=== PATIENT | female | born 1980 | race American Indian/Alaskan Native ===

== ENCOUNTER 2024-04-09 03:25 | Emergency (ER) | payer OTHER, SELFPAY ==
[2024-04-09 03:26] VITALS: BMI 32.4
[2024-04-09 03:35] VITALS: BP 157/102; BP 170/110; PULSE 85; RESP 16; TEMP 36.5; O2SAT 99
[2024-04-09 04:29] VITALS: BP 133/85; PULSE 76; RESP 16; TEMP 36.7; O2SAT 100
[2024-04-09] MEDS: KETOROLAC INJ 60 MG/2 ML VIAL 30 MG IM (04:38)
--- NOTE | 2024-04-09 04:38 | PD.EDEYE ---
ED Eye Problem RME/HPI General Chief complaint: Eye Problems Stated complaint: RIGHT EYE SWELLING Time Seen by Provider: 04/09/24 04:19 Source: patient Arrival date/time: 04/09/24 03:25 Mode of arrival: ambulatory Limitations: no limitations RME / HPI RME / HPI Narrative: Dr. 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 She has mild photophobia without changing vision. She was seen by the early day provider, where she had an eyewash and started on Tobramycin eyedrop. She denies any foreign bodies in her eye. She noticed symptoms are worsening. Her eyelids are swollen and appear to be having more tearing. Denies fevers, chills, or sweats. Related Data Home Medications ?Medication ?Instructions ?Recorded ?Confirmed cyanocobalamin (vitamin B-12) 1,000 mcg QWEEK 07/22/20 10/09/23 1,000 mcg/mL injection syringe ergocalciferol (vitamin D2) 1,250 1,250 mcg PO QWEEK 07/22/20 10/09/23 mcg (50,000 unit) capsule (Vitamin D2) ferrous fumarate 456 mg (150 mg 456 mg PO QDAY 07/22/20 10/09/23 iron) tablet (Ferrimin 150) valacyclovir 1 gram tablet 1,000 mg PO QDAY 07/22/20 10/09/23 (Valtrex) Previous Rx's ?Medication ?Instructions ?Recorded amoxicillin 875 mg-potassium 1 tab PO Q12H #10 tabs 04/09/24 clavulanate 125 mg tablet ibuprofen 600 mg tablet 600 mg PO Q8H PRN pain #14 tabs 04/09/24 Allergies Allergy/AdvReac Type Severity Reaction Status Date / Time No Known Allergies Allergy Verified 04/09/24 03:25 Review of Systems Review of Systems Systems Reviewed: All systems reviewed, normal except as documented Past Medical History Past Medical History NEUROLOGIC: Negative Neurological Disorders or Seizures CARDIAC: Negative Cardiac Disorders or Congestive Heart Failure RESPIRATORY: Negative Chronic Obstructive Pulmonary Disease (COPD) GASTROINTESTINAL: Positive Gastrointestinal Disorders and Obesity GENITOURINARY: Negative Genitourinary Disorders or Renal Disease REPRODUCTIVE: Positive Previous Pregnancies MUSCULOSKELETAL: Negative Musculoskeletal Disorders ENDOCRINE: Negative Endocrine Disorders, Diabetes Mellitus Type 1 or Diabetes Mellitus Type 2 HEMATOLOGIC: Positive Anemia; Negative Blood Disorders OTHER HISTORY: Positive Anesthesia Reactions; Negative Hospitalization, Falls, Blood Transfusions or Cancer Surgical History SURGICAL: Positive Abdominal Surgery and Gastric Bypass Surgery; Negative Joint Replacement Social History SMOKING STATUS: Never smoker ED Exam Narrative Physical exam: GENERAL APPEARANCE: AxOx4, generally well-appearing, no acute distress. HEENT: NC, AT. MMM. EOMI, clear conjunctiva, oropharynx clear. There is edema and swelling of her eyelids and chemosis around her eyes andl injected conjunctiva. NECK: Supple without lymphadenopathy. No stiffness or restricted ROM. HEART: Normal rate and regular rhythm, normal S1/S1, no m/r/g LUNGS: CTAB, moving air well. No crackles or wheezes are heard. ABDOMEN: Soft, nontender, nondistended with good bowel sounds heard. BACK: No midline C/T/L spine pain or deformity, No CVAT, no obvious deformity. EXTREMITIES: Without cyanosis, clubbing or edema. MUSCULOSKELETAL: FROM of all major joints, no chest tenderness NEUROLOGICAL: Grossly nonfocal. Alert and oriented, moving all 4 extremities. CN not formally tested but appear grossly intact. Observed to ambulate with normal gait. Skin: Warm and dry without any rash. General Limitations: Present no limitations Course Quality Measures none Orders Category Date Time Status Ketorolac Inj [Toradol Inj] Med 04/09/24 04:30 Discontinued 30 mg IM X1 ONE Vital Signs Vital signs: Vital Signs Temperature 97.7 F 04/09/24 03:35 Pulse Rate 85 04/09/24 03:35 Respiratory Rate 16 04/09/24 03:35 Blood Pressure 170/110 H 04/09/24 03:35 Pulse Oximetry (%) 99 04/09/24 03:35 Oxygen Delivery Method Room Air 04/09/24 03:35 Eye MDM Narrative MDM Narrative:: Scribe Attestation: Christopher Ruvalcaba, feng scribing for and in the presence of Dr. Villarreal. Provider Notation: Although this document has been carefully reviewed, there may still be some phonetic and other typographical errors. These errors are purely grammatical due to imperfections in the software program and should not be construed in any way to compromise the substance of the patient's medical care during this visit. Patient data External records reviewed:: [facility] previous records Clinical information provided by:: patient Social determinants that could affect healthcare access:: none Patient has the following chronic illnesses:: Anemia How is presenting disease/condition affected by chronic disease/condition?: uneffected by Evaluation data The following diagnostics were reviewed and interpreted by me:: other (specify) (None) Lab and/or radiology exams considered but not ordered:: None Interpretation Summary: None Medications / Prescriptions Medications or Prescriptions considered but not ordered:: None Medication administrations:: Medication Administration History Discontinued Medications Ketorolac Tromethamine (Ketorolac Inj 60 Mg/2 Ml Vial) 30 mg IM X1 ONE Stop: 04/09/24 04:31 Last Admin: 04/09/24 04:38 Dose: 30 mg Documented By: DB As above, if any Consultations Consultation(s) initiated? (list below): No Diagnosis Eye Problem Differential Diagnosis: corneal abrasion, conjunctivitis, acute iritis, periorbital cellulitis, subconjunctival hemorrhage, corneal ulcer and other (pre-septal cellulitis) Most likely diagnosis given after review of the tests above:: Preseptal cellulitis of right eye Admission Indicated Admission indicated?: not indicated Admission Request Was there a request for admission?: No Disposition Plan Disposition Plan: Discharge Discharge Attestation Discharge Attestation: The patient and all family members were given an opportunity to ask questions and understood the discharge instructions. Discharge instructions specifically effects, indications for sooner follow up or return to the emergency department, and the expected course of current diagnosis. Patient condition: Stable Discharge Plan Plan Patient Disposition: HOME (Self Care) Prescriptions/Referrals Prescriptions/Med Rec: New amoxicillin-pot clavulanate 875-125 mg tablet 1 tab PO Q12H Qty: 10 0RF ibuprofen 600 mg tablet 600 mg PO Q8H PRN (Reason: pain) Qty: 14 0RF No Action valacyclovir [Valtrex] 1 gram Tablet 1,000 mg PO QDAY ergocalciferol (vitamin D2) [Vitamin D2] 1,250 mcg (50,000 unit) Capsule 1,250 mcg PO QWEEK Ferrimin 150 456 mg (150 mg iron) Tablet 456 mg PO QDAY cyanocobalamin (vitamin B-12) 1,000 mcg/mL Syringe 1,000 mcg QWEEK Problem List Clinical Impression: Preseptal cellulitis of right eye Patient/Caregiver Discharge Instructions Education Materials: ED Periorbital Cellulitis Additional Instructions: Please stop the eyedrops. At this point we will need to take oral antibiotics. Follow-up with your primary care doctor, Dr. Leiva, in 2 to 3 days for recheck. Feel free return to the emergency department sooner if symptoms worsen or if he notes any new or concerning issues Print Language: Bur[place]ian Stand Alone Forms: Leonora Award Info., Patient Portal Info Letter
== END 2024-04-09 04:50 | disposition home or self-care (01) ==
PROVIDERS: Emergency Provider Emergency Medicine; PCP Internal Medicine
DX: L03.213 Periorbital cellulitis (principal)
CPT/HCPCS: 96372; 99283; J1885

== ENCOUNTER → 2024-10-22 | Outpatient (CLI) | payer OTHER, SELFPAY ==
[2024-10-22 13:12] LABS: Collection Type, Urine Clean Catch
[2024-10-22 13:44] LABS: Basophils % (Auto) 0 % (0-2.5); Eosinophils # (Auto) 0.1 Thou/mm3 (0.0-0.5); Eosinophils % (Auto) 2 % (0-10); Hematocrit 39.8 % (36.0-46.0); Hemoglobin 13.8 g/dL (12.0-16.0); Immature Granulocytes % (Auto) 0 % (0-0); Immature Granulocytes Auto 0.02 Thou/mm3 (0.00-0.00); Lymphocytes # (Auto) 2.1 Thou/mm3 (1.0-4.8); Lymphocytes % (Auto) 36 % (10-50); Mean Corpuscular HGB Conc 34.7 g/dl (31.0-37.0); Mean Corpuscular Hemoglobin 31.6 pg (25.0-35.0); Mean Corpuscular Volume 91 fL (80-100); Monocytes # (Auto) 0.5 Thou/mm3 (0.0-0.8); Monocytes % (Auto) 8 % (0-12); Neutrophils # (Auto) 3.1 Thou/mm3 (1.8-7.7); Neutrophils % (Auto) 54 % (37-80); Nucleated Red Blood Cell % 0 /100 WBC (0); Platelet Count 266 Thou/mm3 (140-440); RDW Standard Deviation 42.5 fL (36.4-46.3); Red Blood Count 4.37 Miln/mm3 (4.00-5.20); White Blood Count 5.8 Thou/mm3 (3.6-11.0)
[2024-10-22 13:59] LABS: Alanine Aminotransferase 27 U/L (10-49); Albumin, Serum 4.6 gm/dL (3.5-5.0); Albumin/Globulin Ratio 2.1 (1.2-2.2); Alkaline Phosphatase 71 U/L (46-116); Anion Gap 11 (7-16); Aspartate Amino Transferase 28 U/L (0-34); BUN/Creatinine Ratio 13 Ratio (12-20); Blood Urea Nitrogen 10 mg/dL (9-23); Carbon Dioxide 28.3 mMol/L (20.0-31.0); Cardiac Risk Estimate 3.1 RATIO (3.7-5.6); Chloride 105 mMol/L (98-107); Cholesterol 178 mg/dL (132-200); Creatinine (Component) 0.8 mg/dL (0.6-1.3); Globulin 2.2 gm/dL (2.3-3.5); Glucose 92 mg/dL (74-106); HDL Cholesterol 58 mg/dL (40-60); LDL Cholesterol,Calculated 104 mg/dL (0-130); Osmolality,Calculated 285 (275-295); Potassium 3.6 mMol/L (3.4-5.1); Sodium 144 mMol/L (136-145); Thyroid Stimulating Hormone 2.31 uIU/mL (0.55-4.78); Total Protein 6.8 gm/dL (5.7-8.2); Triglycerides 82 mg/dL (30-150); Uric Acid 5.3 mg/dL (3.1-7.8); eGFR > 60 See Note
[2024-10-22 14:00] LABS: Ferritin 59 ng/mL (7.3-270.7)
[2024-10-22 14:03] LABS: Follicle Stimulating Hormone 20.09 mIU/mL (See Note); Vitamin B12 290 pg/mL (211-911); Vitamin D 25 Hydroxy Total 35.5 ng/mL (7.3-40.2)
[2024-10-22 14:06] LABS: Glucose Estimated Average 97 mg/dL (80-131)
[2024-10-22 14:44] LABS: Bilirubin,Urine Negative (Negative); Blood,Urine Negative (Negative); Clarity,Urine Clear (Clear/Hazy); Color,Urine Yellow (Lt Yel-Yel); Glucose, Urine Negative (Negative); Ketones,Urine Negative (Negative); Leukocyte Esterase,Urine Negative (Negative); Nitrite,Urine Negative (Negative); PH,Urine 6.5 (5.0-7.0); Protein,Urine Trace (Neg - Trace); RBC,Urine 4 /hpf (0-3); Specific Gravity,Urine 1.034 (1.001-1.035); Squamous Epithelial Cell,Urine 2 /hpf (0-5); WBC,Urine 1 /hpf (0-5)
[2024-11-04 06:40] LABS: Estrogen, Total, Serum* 566 pg/mL; Luteinizing Hormone* 12.3 mIU/mL; Progesterone,LC/MS* 0.2 ng/mL
== END | disposition home or self-care (01) ==
PROVIDERS: PCP Internal Medicine; Referring Provider Internal Medicine; Visit Provider Internal Medicine
DX: Z00.00 Encounter for general adult medical examination without abnormal findings (principal)
CPT/HCPCS: 36415; 80053; 80061; 81001; 82306; 82607; 82672; 82728; 83001; 83002; 83036; 84144; 84443; 84550; 85025